=== PATIENT | female | born 1930 | race Caucasian/White ===

== ENCOUNTER 2017-02-03 16:02 | Observation (INO) | payer MEDICARE ==
[2017-02-03] MEDS ORDERED: ACETAMINOPHEN 325 MG TABLET PO PRN (17:43)
[2017-02-03] MEDS ORDERED: HOME MEDICATION LIST NEEDED 1 EA EACH MC ONE (17:43)
[2017-02-03] MEDS ORDERED: LORazepam 1 MG TABLET PO PRN (17:53)
--- NOTE | 2017-02-03 18:36 | ER PHYSICIAN DOCUMENTATION ---
Physician Documentation [facility] Name:Ev Morton Age:86 yrs Sex:Female :1930 Arrival Date:02/03/2017 Time:16:02 Bed4 Private MD:Adri Flores ED, Chris Disposition: 02/03 18:16 Chart complete. cd Disposition: 02/03/17 18:16 Admit ordered for Panfilo Wilburn. Preliminary diagnosis are Gastroenteritis; Viral, Dehydration - : Severe. - Bed requested for Medical/Surgical. - Condition is Fair. - Problem is new. - Symptoms have improved. 23 HR OBS Yes HPI: 16:10 This 86 yrs old Female presents to ER via Wheelchair with complaints of cd severe diarrhea. 17:56 The patient presents to the emergency department with diarrhea, that is intermittent, 6 cd times today, without any complaints of abdominal pain. Onset: The symptom(s)/episode began/occurred acutely, 4 day(s) ago. Possible causes: unknown. Associated signs and symptoms: Pertinent positives: anorexia, diarrhea, nausea, Pertinent negatives: abdominal pain, dysuria, fever, vomiting. Severity of symptoms: At their worst the symptoms were moderate in the emergency department the symptoms are unchanged. Last August 2016, patient underwent two bowel resections (Larisa PALAFOX X 1 and Surgeon at [facility] x 1). Her abdominal wound is still healing. She denies recent antibiotics or bad food. Patient was seen at the [facility] and her CBC/Diff and CMP were normal. Her 3-way Abdominal films revealed increased gas, but no free air or Air fluid levels. No signs of obstruction, megacolon or volvulus. She was sent to the ED for admission to the hospital for IV hydration.. Historical: - Allergies: Celebrex; clindamycin phosphate; - PMHx: ANXIETY; HYPERTENSION; HYPOTHYROIDISM; Abdominal Pain, Generalized (September 05, 2016); Postoperative Pain- Acute - : Probable Anastomotic Leak (September 14, 2016); Dehydration (September 14, 2016); Abdominal Distention (September 14, 2016); Hypokalemia (September 14, 2016); Bowel Obstruction - : 7 days Post-op from SBO (September 14, 2016); - PSHx: APPENDECTOMY; CHOLECYSECTOMY; HYSTERECTOMY; CERVICAL SPINE SURGERY; - Tetanus: < 10 years. - Ebola Screening: : Patient negative for fever greater than or equal to 101.5 degrees Fahrenheit, and additional compatible Ebola Virus Disease symptoms. Patient denies exposure to infectious person. Patient denies travel to an Ebola-affected area in the 21 days before illness onset. . - Immunization history: Flu Vaccine < 1 year. - Social history: Smoking status: Patient states former smoker of tobacco. ROS: 18:03 ENT: Negative for injury, pain, epistaxis and discharge. cd Neck: Negative for injury, pain, stiffness and swelling. Cardiovascular: Negative for chest pain, palpitations, edema and pleuritic pain. Respiratory: Negative for shortness of breath, dyspnea on exertion, cough, sputum production, wheezing, hemoptysis and pleuritic chest pain. Back: Negative for injury, pain or muscle spasms. : Negative for injury, bleeding, discharge, dysuria, frequency, urgency and swelling. MS/Extremity: Negative for injury, deformity, edema, calf tenderness, pain or coldness. Skin: Negative for injury, rash, itching and discoloration. 18:03 Neuro: Negative for headache, weakness, numbness, tingling, and seizure. cd 18:03 Constitutional: Positive for poor PO intake, Negative for chills, fever. 18:03 Abdomen/GI: Positive for nausea, diarrhea, abdominal distension, anorexia, Negative for abdominal pain, vomiting, constipation, hematemesis, black/tarry stool, rectal bleeding. 18:03 All other systems are negative. Exam: Eyes: Pupils equal round and reactive to light, extra-ocular motions intact. Lids and lashes normal. Conjunctiva and sclera are non-icteric and not injected. Cornea within normal limits. Periorbital areas with no swelling, redness, or edema. ENT: Nares patent. No nasal discharge, no septal abnormalities noted. Tympanic membranes are normal and external auditory canals are clear. Oropharynx with no redness, swelling, or masses, exudates, or evidence of obstruction, uvula midline. Mucous membranes dry Neck: Trachea midline, no thyromegaly or masses palpated, and no cervical lymphadenopathy. Supple, full range of motion without nuchal rigidity, or vertebral point tenderness. No Meningismus. Chest/axilla: Normal chest wall appearance and motion. Nontender with no deformity. No lesions are appreciated. Back: No spinal tenderness. No costovertebral tenderness. Full range of motion. Skin: Warm, dry with normal turgor. Normal color with no rashes, no lesions, and no evidence of cellulitis. MS/ Extremity: Pulses equal, no cyanosis. Neurovascular intact. Full, normal range of motion. 18:10 Neuro: Awake and alert, GCS 15, oriented to person, place, time, and situation. cd Cranial nerves II-XII grossly intact. Motor strength 5/5 in all extremities. Sensory grossly intact. Cerebellar exam normal. Normal gait. 18:10 Constitutional: The patient appears alert, awake, non-diaphoretic, non-toxic, well developed, well nourished, frail, listless, obese, pale. 18:10 Cardiovascular: Rate: normal, Rhythm: regular, Pulses: no pulse deficits are appreciated, Heart sounds: normal, Edema: is not appreciated. 18:10 Respiratory: the patient does not display signs of respiratory distress, Respirations: normal, no acute changes, Breath sounds: are normal, clear throughout. 18:10 Abdomen/GI: Inspection: abdomen appears normal, Bowel sounds: high pitched, Palpation: abdomen is soft and non-tender, mass, is not appreciated, rebound tenderness, is not appreciated, voluntary guarding, is not appreciated, involuntary guarding, is not appreciated, no appreciated organomegaly. Vital Signs: 17:04 BP 170 / 68; Pulse 88; Resp 16; Temp 98.2(TE); Pulse Ox 96% on R/A; Pain 0/10; tg 18:33 BP 126 / 62; Pulse Ox 94% on R/A; lb MDM: 16:20 Data interpreted: Pulse oximetry: on room air is 96 %. Interpretation: normal. cd 16:28 Patient medically screened. cd 17:00 Differential diagnosis: viral gastroenteritis, gastroenteritis, Severe Dehydration. cd 17:10 Physician consultation: Panfilo Wilburn MD was called at 17:05, was contacted at 17:05, cd regarding admission, to the floor, consult, patient's condition, need to come to ED to see patient, need to evaluate the patient as soon as possible, and will see patient in ED, immediately. 17:15 Data reviewed: vital signs, nurses notes, old medical records, lab test result(s), cd radiologic studies, plain films, and as a result, I will admit patient, administer IV fluids, NS bolus, NS maintenence. 18:14 Counseling: I had a detailed discussion with the patient and/or guardian regarding: the cd historical points, exam findings, and any diagnostic results supporting the discharge/admit diagnosis, lab results, radiology results, the need for further work-up and treatment in the hospital. 18:15 Response to treatment: the patient's symptoms have mildly improved after treatment, and cd as a result, I will admit patient. 02/03 16:30 Order name: I & O; Complete Time: 17:52 cd 02/03 16:30 Order name: NPO; Complete Time: 17:52 cd 02/03 18:33 Order name: Urine Dip; Complete Time: 18:33 lb Dispensed Medications: Completed: NS 0.9% 500 ml IV at bolus once 17:25 Drug: NS 0.9% 500 ml; Route: IV; Rate: bolus; Site: right antecubital; lb 18:32 Follow up: IV Status: Completed infusion; IV Intake: 1000ml lb Point of Care Testing: Urine Dip: 18:14 pH: 7.0; ; Specific [place]: 1.015; Ketones: Negative; Glucose: Negative; Protein: lb Negative; Leukocytes: Negative; Nitrite: Negative ; Blood: Non Hemolyzed Trace; Bilirubin: Negative ; Urobilinogen: Normal Signatures: Frank Black RN RN tg Terry Jung MD MD cd Bollock, Lynda lb
--- NOTE | 2017-02-03 18:36 | ER NURSING DOCUMENTATION ---
Nurse's Notes [facility] Name:Ev Morton Age:86 yrs Sex:Female :1930 Arrival Date:02/03/2017 Time:16:02 Bed4 Private MD:Adri Flores Diagnosis:Gastroenteritis; Viral;Dehydration-: Severe Presentation: 02/03 16:14 Acuity: TRAVIS 2 tg 17:09 Presenting complaint: Patient states: Sent from Dr. Flores for further workup of tg possible bowel obstruction. Diarrhea recently. Denies ABD pain. Transition of care: [facility]. 17:09 Method Of Arrival: Wheelchair tg Triage Assessment: 17:07 General: Appears uncomfortable, Behavior is cooperative, quiet. Pain: Denies pain. tg Respiratory: Respiratory effort is even, unlabored. GI: Abdomen is distended, Bowel sounds present X 4 quads. Abd is soft. Derm: Skin is pink, warm & dry. Historical: - Allergies: Celebrex; clindamycin phosphate; - PMHx: ANXIETY; HYPERTENSION; HYPOTHYROIDISM; Abdominal Pain, Generalized (September 05, 2016); Postoperative Pain- Acute - : Probable Anastomotic Leak (September 14, 2016); Dehydration (September 14, 2016); Abdominal Distention (September 14, 2016); Hypokalemia (September 14, 2016); Bowel Obstruction - : 7 days Post-op from SBO (September 14, 2016); - PSHx: APPENDECTOMY; CHOLECYSECTOMY; HYSTERECTOMY; CERVICAL SPINE SURGERY; - Tetanus: < 10 years. - Ebola Screening: : Patient negative for fever greater than or equal to 101.5 degrees Fahrenheit, and additional compatible Ebola Virus Disease symptoms. Patient denies exposure to infectious person. Patient denies travel to an Ebola-affected area in the 21 days before illness onset. . - Immunization history: Flu Vaccine < 1 year. - Social history: Smoking status: Patient states former smoker of tobacco. Screenin:07 Infectious Disease Risk Unable to Obtain. Abuse screen: Denies threats or abuse. Denies tg injuries from another. Nutritional screening: No deficits noted. Assessment: 17:07 See Triage Assessment done by same RN. tg 18:16 Reassessment: care of pt endorsed. awake, alert. skin warm and dry. denies abd pain. Dr ashley Wilburn will be in to admit pt.. Vital Signs: 17:04 BP 170 / 68; Pulse 88; Resp 16; Temp 98.2(TE); Pulse Ox 96% on R/A; Pain 0/10; tg 18:33 BP 126 / 62; Pulse Ox 94% on R/A; lb ED Course: 16:04 Patient arrived in ED. lm3 16:04 Adri Flores MD is Private Physician. lm3 16:14 Frank Black RN is Primary Nurse. tg 16:14 Triage completed. tg 16:28 Terry Jung MD is Attending Physician. cd 17:07 Arm band placed on Bed in low position Call Light in Reach Gowned HOB Elevated Side tg rails up x1. 17:07 Valuables Remains with patient. Pulse Ox - RN Monitoring Only. tg 17:08 Assisted to bathroom. tg 17:08 Report given to MICHI Gallardo. tg 17:08 Missed attempts: 20 gauge X 3 Bleeding controlled, band aid applied, catheter tip tg intact. 17:16 Inserted peripheral IV: 20 gauge in right antecubital area. sj 18:16 Panfilo Wilburn MD is Admitting Physician. cd Administered Medications: Completed: NS 0.9% 500 ml IV at bolus once 17:25 Drug: NS 0.9% 500 ml; Route: IV; Rate: bolus; Site: right antecubital; lb 18:32 Follow up: IV Status: Completed infusion; IV Intake: 1000ml lb Point of Care Testing: Urine Dip: 18:14 pH: 7.0; ; Specific [place]: 1.015; Ketones: Negative; Glucose: Negative; Protein: lb Negative; Leukocytes: Negative; Nitrite: Negative ; Blood: Non Hemolyzed Trace; Bilirubin: Negative ; Urobilinogen: Normal Intake: 18:32 IV: 1000ml; Total: 1000ml. lb Outcome: 18:16 Decision to Admit by Provider. cd 18:33 Admitted to Med/surg accompanied by nurse, via stretcher. lb 18:33 Condition: stable 18:33 Report given to Dony RN 18:33 Instructed on need to admit 18:35 Patient left the ED. lb Signatures: Frank Black RN RN tg Terry Jung MD MD cd Janzen, Sarah sj Bollock, Lynda lb Janice Chaves lm3
[2017-02-03] MEDS: POTASSIUM CHLORIDE/NS 1,000 ML IV SCH (19:04)
[2017-02-03] MEDS: ZINC OXIDE TOPICAL SCH ×3 (20:33→20:42)
[2017-02-03] MEDS: CALAMINE TOPICAL SCH ×3 (20:33→20:42)
[2017-02-03] MEDS: LANOLIN TOPICAL SCH ×3 (20:33→20:42)
[2017-02-03] MEDS: MENTHOL TOPICAL SCH ×3 (20:33→20:42)
[2017-02-03] MEDS: GABAPENTIN 100 MG CAPSULE PO SCH (20:34)
[2017-02-03] MEDS ORDERED: MENTHOL TOPICAL ONE (20:43)
[2017-02-03] MEDS ORDERED: LANOLIN TOPICAL ONE (20:43)
[2017-02-03] MEDS ORDERED: ZINC OXIDE TOPICAL ONE (20:43)
[2017-02-03] MEDS ORDERED: CALAMINE TOPICAL ONE (20:43)
[2017-02-03] MEDS ORDERED: HOME MEDICATION LIST NEEDED 1 EA EACH MISC ONE (21:00)
[2017-02-03] MEDS ORDERED: metoprolol SUCC ER 25 MG TABLET PO SCH (21:00)
[2017-02-03] MEDS ORDERED: MIRTAZAPINE 15 MG TAB PO SCH (21:00)
[2017-02-04] MEDS: POTASSIUM CHLORIDE/NS 1,000 ML IV SCH (02:49)
[2017-02-04] MEDS ORDERED: LEVOTHYROXINE 100 MCG TABLET PO SCH (06:30)
--- NOTE | 2017-02-04 06:55 | HISTORY & PHYSICAL ---
DATE OF ADMISSION: 02/03/17 ATTENDING PHYSICIAN: Panfilo Wilburn MD PRIMARY CARE PHYSICIAN: Adri Flores MD HISTORY OF PRESENT ILLNESS: This 86-year-old woman has a 4-day history of diarrhea without nausea, vomiting, abdominal pain, fever or lightheadedness. She has a previous history of a small bowel obstruction that was operated initially in August [address] Peres. She had a small leak in the anastomosis requiring a second surgery days later. She is still dealing with delayed healing of that wound. She has not had any recent antibiotics and has no history of Clostridium difficile. She is taking a probiotic lately. 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 PAST MEDICAL HISTORY 1. 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 2. Mild concentric left ventricular hypertrophy. 3. 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 4. Diastolic dysfunction without heart failure. 5. Hypertension. 6. Autoimmune hypothyroidism. 7. Depression and anxiety. 8. Chronic intermittent diarrhea. 9. Anal fissure. 10. History of hyponatremia. 11. Osteopenia. 12. Hyperlipidemia. 13. Obesity. MEDICATIONS Diltiazem gel 2% b.i.d. to the rectum. Synthroid 100 mcg daily. Remeron 30 mg daily. Lorazepam 1 mg q.8 hours PRN for anxiety. Metoprolol succinate extended release 25 mg tab daily. Gabapentin 100 mg t.i.d. Losartan/Hydrochlorothiazide 100 mg/25 mg daily. Potassium chloride 10 MEQ daily. ALLERGIES: Enalapril, Diclofenac, Spironolactone, Hytrin, blue dye, all mycin antibiotics, Clindamycin, Celebrex. SOCIAL HISTORY: Patient lives here in [place] with her . They have 3 children. 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 She has a history of smoking until approximately 30 years ago. She drinks moderately (alcohol). IMMUNIZATIONS: Patient had a Tdap in 2012, Prevnar 2014 and a flu shot last in 2014. REVIEW OF SYSTEMS GENERAL: Malaise and fatigue without fevers or chills. RESPIRATORY: No cough, congestion or shortness of breath. CARDIOVASCULAR: No chest pain or palpitations. GI: frequent diarrhea with some mild bloating, but no significant pain, nausea or vomiting. : No dysuria. MUSCULOSKELETAL: No myalgias. PHYSICAL EXAMINATION VITAL SIGNS: Blood pressure 121/62, pulse 88, respiratory rate 16, temperature 98.2 and O2 saturation 96% on room air. GENERAL: Alert and oriented x3 and in no acute distress. HEENT: Oral mucosa is moist. Sinuses nontender and ears without erythema. LUNGS: Clear with distant breath sounds. HEART: Regular rate and rhythm with no murmur. ABDOMEN: Vertical midline scar with a 1 cm area in the upper portion that has slight serous sanguinous drainage but no significant tenderness. Nontender with positive bowel sounds and slight distention with gas. No masses. EXTREMITIES: Without edema. RECTAL: Has some mild superficial erythema for several centimeters surrounding the anus. She has a hemorrhoidal tag but no obvious fissure. I did not attempt a rectal exam. LABORATORY DATA: White count of 6.7 with 63% neutrophils and 28% lymphs. Hemoglobin 13, hematocrit 39.6 and platelets are 183,000. Her sodium is 138, potassium 3.6, chloride 103, CO2 26, creatinine 0.9, glucose 88, calcium 9.7. Her stool studies showed negative Clostridium difficile, negative leukocytes and negative blood. Giardia assay pending. IMPRESSION 1. Four days of diarrhea of uncertain etiology. Previous history with some intermittent diarrhea. Maybe viral. Clostridium difficile ruled out. She has a lot of gas in the 3-way of the abdomen but no evidence of obstruction. 2. Dehydration. 3. Chronic anal fissure and rectal pains exacerbated by #1. 4. Hypertension. 5. Excessive bowel gas on abdominal x-ray. 6. Hx of small bowel obstruction. PLAN: Patient will be getting IV fluids over night. Hopefully she will improve enough to return home in the next day or so. I will hold on her MiraLax, potassium and magnesium which she normally takes. HILARY
[2017-02-04 07:36] LABS: BLOOD UREA NITROGEN 10 mg/dL (7-17); CALCIUM 8.9 mg/dL (8.4-10.2); CHLORIDE 111 mmol/L (98-107); CREATININE 0.8 mg/dL (0.5-1.0); GLUCOSE 82 mg/dL (70-100); POTASSIUM 3.7 mmol/L (3.5-5.1); SODIUM 142 mmol/L (137-145)
[2017-02-04] MEDS ORDERED: LOSARTAN POTASSIUM 50 MG TABLET PO SCH (09:00)
[2017-02-04] MEDS ORDERED: PROBIOTIC 1 CAP CAPSULE PO SCH (09:00)
[2017-02-04] MEDS: ZINC OXIDE TOPICAL SCH ×2 (09:04→15:07)
[2017-02-04] MEDS: CALAMINE TOPICAL SCH ×2 (09:04→15:07)
[2017-02-04] MEDS: LANOLIN TOPICAL SCH ×2 (09:04→15:07)
[2017-02-04] MEDS: GABAPENTIN 100 MG CAPSULE PO SCH ×2 (09:04→15:03)
[2017-02-04] MEDS: MENTHOL TOPICAL SCH ×2 (09:04→15:07)
[2017-02-04 14:44] VITALS: BP 139/57; PULSE 70; RESP 16; TEMP 97.6; O2SAT 97
--- NOTE | 2017-02-04 16:43 | DC SUMMARY: IM Note ---
Discharge Summary: IM/Peds Provider: Date of Admission: 02/03/17 Admitting Provider: SONIA VERAS MD Attending Provider: CHIQUITA FLORSE MD Discharging Provider: SONIA VERAS MD Primary Care Provider: Discharge Date: 02/04/17 - Diagnosis (1) Diarrhea Status: Acute (2) Dehydration Status: Acute (3) Delayed surgical wound healing Status: Chronic Hospital Course: I admitted this patient of Dr. Flores's on the evening of 02/03/17 for diarrhea and dehydration. She had had diarrhea for 5 days and was quite weak. She improved dramatically overnight with IV fluids, probiotic, and a high protein low carb low fiber diet. By afternoon on 02/04/17, she was eating fairly well, and had no nausea, abdominal pain, or fever.she had 2 loose bowel movements during the night, then no further BMs during the day. She was passing gas well. She was anxious to go home. she may have simply had a viral gastroenteritis. however she's had some trouble with intermittent diarrhea since her small bowel resection in August. She lost a total of about 18 inches of small bowel. She may have some element of short gut syndrome, although she lost a relatively small amount of bowel and her surgeries. Small intestinal bacterial overgrowth would also be a possibility. For now we will see how she does as an outpatient on the change diet. I will discharge her to home, with close follow-up next week by Dr. Flores. She should drink ample fluids and continue on a high-protein low-carb low fiber diet in small frequent amounts. - Time Spent with Patient Total time spent providing and/or coordinating discharge services: Discharge - Patient/Caregiver Discharge Instructions Activity Level: as tolerated Diet: low fiber, low carb, high protein in frequent small amounts. Additional Instructions: Continue to stay hydrated. See print out information related to dehydration. Transition your diet close to a paleo diet. High protein, Low fiber, Low carbohydrates. Ambulate minimally 3x daily. Continue changing your abdominal dressings as ordered at home. Last changed 02/03 at night. Follow up: CHIQUITA FLORES MD [Primary Care Provider] - 3 Days Disposition: HOME, SELF-CARE Discharge Summary Data - Medication History Medication History: Home Medications Calcium Carbonate [Tums X-Str*] 1,200 mg PO DAILY 09/05/16 Glucosa Silva 2Kcl/Chondroitin Silva [Glucosamine & Chondroitin Cap] 1 each PO EVERY OTHER DAY 09/05/16 LORazepam [Ativan*] 1 mg PO BID PRN 09/05/16 Levothyroxine [Synthroid*] 100 mcg PO DAILY 09/05/16 Ocuvite Vit C/E/Zinc/Cu [Ocuvite Lutein Capsule*] 1 cap PO DAILY 09/05/16 [place]-3/Dha/Epa/Fish Oil [Fish Oil Conc 1,000 mg Softgel] 1,000 mg PO DAILY 09/11 Potassium Chloride ER [K-Dur*] 1 tab PO DAILY 09/05/16 metoprolol SUCC ER [Toprol Xl*] 25 mg PO BEDTIME (DAILY) 09/05/16 Levothyroxine [Synthroid*] 100 mcg PO DAILY@0630 tablet 09/12/16 Losartan Potassium [Cozaar*] 100 mg PO DAILY tablet 09/12/16 metoprolol SUCC ER [Toprol Xl*] 25 mg PO DAILY tablet 09/12/16 Acetaminophen [Tylenol*] 650 mg PO Q6H PRN #0 tablet 02/04/17 Gabapentin [Neurontin*] 100 mg PO TID capsule 02/04/17 Menthol/Lanolin/Calamine/Znox [Calmoseptine Oint*] 1 sonal TOPICAL TID oint.appl 02/04/17 Mirtazapine [Mirtazapine*] 30 mg PO HS tablet 02/04/17 Probiotic [Lorena-Q Capsule*] 1 cap PO DAILY capsule 02/04/17 Inpatient Medications 02/04/17 09:00 Probiotic [Lorena-Q Capsule] 1 cap PO DAILY Procedures and tests throughout hospitalization: Pending Orders 02/04/17 09:00 Probiotic [Lorena-Q Capsule] 1 cap PO DAILY 02/04/17 16:32 Discharge ONCE Remove Peripheral IV ONCE 02/04/17 Lunch Paleo Diet Labs on day of discharge: Labs from last 24 hours 02/04/17 07:05 Sodium 142 Potassium 3.7 Chloride 111 H Carbon Dioxide 24 BUN 10 Creatinine 0.8 GFR Calculation Not Reportable Glucose 82 Calcium 8.9 IM: Discharge Physical Exam - I&O/Vital Signs I&O: Intake & Output 02/04/17 02/04/17 02/04/17 05:59 13:59 21:59 Intake Total 1241 Output Total 375 Balance 866 Intake: IV 1141 Right Antecubital 1141 Oral 100 Output: Urine 375 Other: Urine Appearance Clear Urine Color Yellow Stool Size Moderate Moderate Stool Characteristics Liquid Liquid Black Brown Voiding Method Toilet Toilet # Voids 2 # Bowel Movements 1 Vital Signs: Last Vital Signs Temp 36.4 C 02/04/17 14:43 Pulse 70 02/04/17 14:43 Resp 16 02/04/17 14:43 BP 139/57 02/04/17 14:43 Pulse Ox 97 02/04/17 14:43 Oxygen Delivery Method Room Air - Constitutional General appearance: Present: average body habitus. Absent: acute distress - ENT ENT exam: Present: mucous membranes moist - Respiratory Respiratory exam: Present: clear. Absent: rales, wheezes - Cardiovascular Cardiovascular exam: Present: RRR - GI/Abdominal GI/Abdominal exam: Present: normal bowel sounds, soft. Absent: distended, mass , tenderness - Extremities Exam Extremities exam: Absent: calf tenderness, edema - Neurological Exam Neurological exam: Present: oriented X3 - Psychiatric Psychiatric exam: Present: normal mood - Skin Skin exam: Absent: pallor, rash
== END 2017-02-04 16:32 | disposition home or self-care (01) ==
LOC: ER 16:02 → IN 18:23
PROVIDERS: ADMIT Family Medicine; ATTEND Internal Medicine
DX: E86.0 Dehydration (principal); R19.7 Diarrhea, unspecified; K60.3 Anal fistula; T81.89XD Other complications of procedures, not elsewhere classified, subsequent encounter; E03.8 Other specified hypothyroidism; F41.8 Other specified anxiety disorders; I51.9 Heart disease, unspecified; I11.0 Hypertensive heart disease with heart failure; E78.5 Hyperlipidemia, unspecified; E66.9 Obesity, unspecified; M85.89 Other specified disorders of bone density and structure, multiple sites; I51.7 Cardiomegaly; E87.1 Hypo-osmolality and hyponatremia; Z79.899 Other long term (current) drug therapy
CPT/HCPCS: 36415; 80048; 96360; 99285; G0378; J3480